=== PATIENT | female | born 1990 | race African-American/Black ===

== ENCOUNTER 2022-07-05 07:09 | Inpatient (IN) | payer OTHER ==
[~2022-07-05] VITALS: Ht 175.3 cm; Wt 114.7 kg
[2022-07-05] VITALS (32 sets, daily range): BP systolic 107–146; BP diastolic 57–90
[~2022-07-05 07:09] MED LIST: UNRESOLVED CLARIFICATION ENTRY XX SCH
[2022-07-05] MEDS ORDERED: LACTATED RINGER'S 1000 ML IV STA (08:23)
[2022-07-05] MEDS ORDERED: OXYTOCIN DRIP 30 UNITS in IV 1 EA IV PRN (08:25)
[2022-07-05] MEDS ORDERED: METHYLERGONOVINE MALEATE 0.2MG/ML 1ML VIAL IM PRN (08:25)
[2022-07-05] MEDS ORDERED: CARBOPROST TROMETHAMINE 250 MCG/ML AMP IM PRN (08:25)
[2022-07-05] MEDS ORDERED: LIDOCAINE 1% MDV 20ML VIAL INFIL PRN (08:25)
[2022-07-05] MEDS ORDERED: TRANEXAMIC ACID INJection 1,000 MG in NS 100 ML IV PRN (08:25)
[2022-07-05] MEDS ORDERED: HOME MED LIST COMPLETE! XX SCH (09:00)
[2022-07-05 09:38] LABS: HEMATOCRIT 36.3 % (36.0-47.0); HEMOGLOBIN 12.2 g/dl (12.0-15.5); MEAN CORPUSCULAR HEMOGLOBIN 27.9 pg (27.0-33.0); MEAN CORPUSCULAR HGB CONC 33.6 g/dl (32.0-36.5); MEAN CORPUSCULAR VOLUME 82.9 fl (80.0-96.0); PLATELET COUNT, AUTOMATED 224 10^3/uL (150-450); RED BLOOD COUNT 4.38 10^6/uL (4.00-5.40); WHITE BLOOD COUNT 8.6 10^3/uL (4.0-10.0)
[2022-07-05] MEDS: LR 1,000 ML IV SCH ×2 (10:43→14:43)
[2022-07-05] MEDS ORDERED: diphenhydrAMINE 50MG/ML VIAL IV PRN (12:00)
[2022-07-05] MEDS ORDERED: LR 500 ML IV PRN (12:00)
[2022-07-05] MEDS ORDERED: ONDANSETRON 4MG 2ML VIAL IV PRN (12:00)
[2022-07-05] MEDS ORDERED: NALOXONE INJ 0.4MG/1ML VIAL IV PRN (12:00)
[2022-07-05] MEDS ORDERED: EPIDURAL/PCA KEYS XX PRN (12:00)
[2022-07-05] MEDS ORDERED: ePHEDrine SULFATE 25 MG/5 ML(5MG/ML) SYRINGE IVP PRN (12:00)
[2022-07-05] MEDS: FENTANYL/ROPIVACAINE/NACL BAG 100 ML EPIDURAL SCH ×2 (14:50→22:00)
[2022-07-05] MEDS ORDERED: ACETAMINOPHEN TAB 650MG DOSE (2X325MG) PO PRN (16:20)
[2022-07-05] MEDS ORDERED: DIBUCAINE 1% OINTMENT 30GM TOP PRN (16:20)
[2022-07-05] MEDS ORDERED: IBUPROFEN 800 MG TAB PO PRN (16:20)
[2022-07-05] MEDS ORDERED: RHOGAM 300MCG (1500IU) INJ IM SCH (16:20)
[2022-07-05] MEDS ORDERED: METHYLERGONOVINE MALEATE 0.2 MG TAB PO PRN (16:20)
[2022-07-05] MEDS ORDERED: DOCUSATE SODIUM 100MG CAPSULE PO PRN (16:20)
[2022-07-05] MEDS ORDERED: METAMUCIL (PSYLLIUM) PACKET PO PRN (19:45)
[2022-07-05] MEDS ORDERED: IBUPROFEN 100MG 5ML ORAL SUSP UDC PO PRN (19:45)
[2022-07-06] MEDS: ACETAMINOPHEN 325MG/10.15ML UDC PO PRN ×2 (01:36→07:53)
[2022-07-06] MEDS: LR 1,000 ML IV SCH ×2 (07:49→08:25)
[2022-07-06] MEDS ORDERED: PRENATAL VITAMINS CHEWABLE TABLET PO SCH (09:00)
[2022-07-07] MEDS ORDERED: MEASLES,MUMPS,RUBELLA VACCINE INJ (MMR-II) SC.IMMUN ONE (09:00)
== END 2022-07-06 18:31 | disposition home or self-care (01) | DRG 807 ==
LOC: M LDO 07:09 → M LDI 08:31 → M OBS 18:14
PROVIDERS: ADMIT Registered Nurse; ATTEND Registered Nurse
PROC: 10E0XZZ Delivery of Products of Conception, External Approach (ICD-10-PCS; principal; 2022-07-05)
DX: O69.1XX0 Labor and delivery complicated by cord around neck, with compression, not applicable or unspecified (principal); Z37.0 Single live birth; Z3A.38 38 weeks gestation of pregnancy; O26.00 Excessive weight gain in pregnancy, unspecified trimester

== ENCOUNTER → 2022-07-18 | Outpatient (CLI) | payer OTHER | LOC: M RAD 11:27 | PROVIDERS: ATTEND Nurse Practitioner Adult Health | DX: R06.02 Shortness of breath (principal) ==